=== PATIENT | female | born 1985 ===

== ENCOUNTER 2024-01-29 08:00 | Outpatient (CLI) | payer OTHER ==
[2024-01-17 12:24] LABS: HEMATOCRIT 38.5 % (36.0-45.00); HEMOGLOBIN 12.7 g/dL (12.0-15.00); MEAN CELL VOLUME 83.9 fL (80.00-100.00); MEAN CORPUSCULAR HEMOGLOBIN 27.7 pg (27.00-32.0); PLATELET COUNT 293 K/uL (150-450); RED BLOOD COUNT 4.59 M/uL (4.00-6.00); RED CELL DISTRIBUTION WIDTH 16.7 % (11.5-14.5)
[2024-01-17 12:28] LABS: URINE APPEARANCE Cloudy; URINE BILIRRUBIN Negative (NEGATIVE); URINE BLOOD Negative; URINE COLOR Yellow; URINE GLUCOSE Negative (NEGATIVE); URINE LEUKOCYTE Negative; URINE NITRATE Negative; URINE PROTEIN Negative (NEGATIVE)
[2024-01-17 12:33] LABS: URINE BACTERIA 2773.5 uL (0.0-1933); URINE EPITHELIAL CELLS 29.2 uL (0.0-38.8); URINE RBC 50.9 uL (0.0-20.8); URINE WBC 13.9 uL (0.0-23.2)
[2024-01-17 12:47] LABS: PARTIAL THROMBOPLASTIN TIME 35.3 SECONDS (22.0-34.0); PROTHROMBIN TIME 10.9 SECONDS (9.0-11.5)
[2024-01-17 12:53] VITALS: BP 118/83
[2024-01-17 12:58] LABS: URINE CAST 0.29 uL (0.0-1.40); URINE CRYSTALS MANY /HPF; URINE KETONE 80 (NEGATIVE)
[2024-01-17 13:08] LABS: ALBUMIN 3.6 gm/dL (3.4-5.0); BILIRUBIN TOTAL 0.58 mg/dL (0.3-1.2); CALCIUM 9.3 mg/dL (8.5-10.1); CREATININE SERUM 0.57 mg/dL (0.55-1.02); GFR 119.35; GLOBULINA 3.5 G/DL (2.4-3.5); POTASSIUM 4.47 mEq/L (3.5-5.1); TOTAL PROTEIN 7.1 gm/dL (6.4-8.2)
[~2024-01-29] VITALS: Ht 149.9 cm; Wt 68.9 kg
[~2024-01-29 08:00] MED LIST: MOUNJARO2.5 MG/0.5; [UNRECOGNIZED DRUG - OTHER]
== END 2024-01-29 08:01 | disposition home or self-care (01) ==
LOC: RAD 08:00
PROVIDERS: ATTEND Surgery
DX: R22.2 Localized swelling, mass and lump, trunk (principal)